=== PATIENT | female | born 1975 | race Caucasian/White ===

== ENCOUNTER 2017-02-05 18:01 | Emergency (ER) | payer MEDICAID ==
[~2017-02-05 18:01] MED LIST: BACT800T5 PO; CEPH500C3 PO; PERC5TAB12 PO
--- NOTE | 2017-02-05 18:25 | PD ---
Physical Exam Time Seen by Provider: 18:24 Narrative Cough and chest congestion x 1 week. Began having fever and chills today. 101 TMAX. Dry cough. No nausea or vomiting. No significant medical history. Data Data Last Documented VS Vital Signs Date Time Temp Pulse Resp B/P (MAP) Pulse Ox O2 Delivery O2 Flow Rate FiO2 02/05/17 19:32 02/05/17 18:28 98.0 66 16 99 Room Air [facility] Medical Record Reviewed: Yes Supervised Visit with JOHNNIE: No Scripts Benzonatate (Tessalon Perles) 100 Mg Cap 200 MG PO TID Y for COUGH, #20 CAP 0 Refills Prov: Lakhwinder Schwab MD 02/05/17 Fluticasone Nasal [place] (Flonase Nasal [place]) 50 Mcg/Act [place] 100 MCG EACH NARE BID for Allergies for 10 Days, #1 BOTTLE 0 Refills Prov: Lakhwinder Schwab MD 02/05/17 Amoxicillin-Clavulanate (Augmentin) 875-125 Mg Tab 1 TAB PO BID for Infection for 10 Days, #20 TAB 0 Refills Prov: Lakhwinder Schwab MD 02/05/17 Condition: Stable Li Billings Feb 05, 2017 18:25
[2017-02-05 18:28] VITALS: BP 120/78; PULSE 66; RESP 16; TEMP 98; O2SAT 99
[2017-02-05] MEDS ORDERED: AUGM875T3 PO (18:48)
[2017-02-05] MEDS ORDERED: BENZ100 PO (18:48)
[2017-02-05] MEDS ORDERED: FLUT1SPR5 EACH NARE (18:48)
--- NOTE | 2017-02-05 18:56 | PD ---
HPI Chief Complaint: Respiratory Symptoms Time Seen by Provider: 18:47 Travel History International Travel<30 days: No Contact w/Intl Traveler<30days: No Traveled to known affect area: No History of Present Illness HPI This is a 42-year-old female who presents for evaluation. For the past week she 's had a cough. The cough is productive with green sputum in the mornings but the rest of the day it is typically a dry cough. She endorses right ear pain for the past few days as well as low-grade fevers. The pain in the right ear is an aching pain which is constant. She denies sore throat, abdominal pain, flank pain, rash, recent travel. She reports that her roommates have had similar symptoms recently. She has no other complaints at this time. [facility] Past Medical History Anxiety: Yes Depression: Yes Diminished Hearing: No Hypertension: Yes Musculoskeletal: Yes ( LOW BACK PAIN) : 3 Para: 2 : 1 Past Surgical History Section: No Other Surgery: Yes (CLEFT PALATE) Social History Alcohol Use: Yes (VODKA) Tobacco Use: Yes (/2 PPD) Substance Use: No Allergies-Medications (Allergen,Severity, Reaction): Coded Allergies: No Known Allergies (Verified , 02/05/17) Reported Meds & Prescriptions Reported Meds & Active Scripts Active Tessalon Perles (Benzonatate) 100 Mg Cap 200 Mg PO TID PRN Flonase Nasal [place] (Fluticasone Nasal [place]) 50 Mcg/Act [place] 100 Mcg EACH NARE BID 10 Days Augmentin (Amoxicillin-Clavulanate) 875-125 Mg Tab 1 Tab PO BID 10 Days Percocet 5-325 mg (Oxycodone/Acetaminophen) Oxycodone 5/325 Acetaminophen Tab 1 Tab PO Q6H PRN Keflex (Cephalexin Monohydrate) 500 Mg Cap 500 Mg PO Q8 10 Days Bactrim DS (Sulfamethoxazole-Trimethoprim DS) 1 Tab Tab 1 Tab PO BID Review of Systems Except as stated in HPI: all other systems reviewed are Neg Physical Exam Narrative GENERAL: Well-developed well-nourished female in no acute distress SKIN: Warm and dry. HEAD: Atraumatic. Normocephalic. EYES: Pupils equal and round. No scleral icterus. No injection or drainage. ENT: No nasal bleeding or discharge. Mucous membranes pink and moist. The right tympanic membrane is bulging and erythematous. No perforation. NECK: Trachea midline. No JVD. There is no lymphadenopathy CARDIOVASCULAR: Regular rate and rhythm. No murmur appreciated. RESPIRATORY: No accessory muscle use. Clear to auscultation. Breath sounds equal bilaterally. No crackles no wheezing or rhonchi Data Data Last Documented VS Vital Signs Date Time Temp Pulse Resp B/P (MAP) Pulse Ox O2 Delivery O2 Flow Rate FiO2 02/05/17 18:28 98.0 66 16 120/78 (92) 99 Room Air [facility] Medical Decision Making Medical Screen Exam Complete: Yes Emergency Medical Condition: Yes Medical Record Reviewed: Yes Differential Diagnosis Right otitis media, sinusitis, bronchitis, pneumonia, influenza Narrative Course This is a 42-year-old female who presents with 1 week of cough, ear pain and low -grade fevers for the past few days. Examination reveals right otitis media. Her lungs sound clear. She appears to have a upper respiratory infection. At this point in time the plan would be to treat the patient with Augmentin, Flonase, Tessalon. She is stable for discharge. Diagnosis Primary Impression: Right otitis media Qualified Codes: H66.001 - Acute suppurative otitis media without spontaneous rupture of ear drum, right ear Additional Impression: Upper respiratory infection Qualified Codes: J06.9 - Acute upper respiratory infection, unspecified Additional Instructions: Medication as prescribed. Avoid tobacco products. Stay well hydrated well- nourished, get plenty of rest. Return for any emergent medical conditions. Med/Other Pt SpecificInfo: Prescription(s) given Scripts Benzonatate (Tessalon Perles) 100 Mg Cap 200 MG PO TID Y for COUGH, #20 CAP 0 Refills Prov: Lakhwinder Schwab MD 02/05/17 Fluticasone Nasal [place] (Flonase Nasal [place]) 50 Mcg/Act [place] 100 MCG EACH NARE BID for Allergies for 10 Days, #1 BOTTLE 0 Refills Prov: Lakhwinder Schwab MD 02/05/17 Amoxicillin-Clavulanate (Augmentin) 875-125 Mg Tab 1 TAB PO BID for Infection for 10 Days, #20 TAB 0 Refills Prov: Lakhwinder Schwab MD 02/05/17 Disposition: 01 DISCHARGE HOME Condition: Stable Gopi Matos Feb 05, 2017 18:56
== END 2017-02-05 19:35 | disposition home or self-care (01) ==
LOC: NEPK 18:01
DX: H66.91 Otitis media, unspecified, right ear (principal); J06.9 Acute upper respiratory infection, unspecified; F41.9 Anxiety disorder, unspecified; F32.9 Major depressive disorder, single episode, unspecified; I10 Essential (primary) hypertension; F17.200 Nicotine dependence, unspecified, uncomplicated; Z79.899 Other long term (current) drug therapy
CPT/HCPCS: 99284

== ENCOUNTER 2017-06-14 12:53 | Emergency (ER) | payer MEDICAID ==
[~2017-06-14] VITALS: Ht 172.7 cm; Wt 75.0 kg
[~2017-06-14 12:53] MED LIST changes: +AUGM875T3 PO; +BENZ100 PO; +FLUT1SPR5 EACH NARE
[2017-06-14 12:54] VITALS: BP 130/83; PULSE 77; RESP 12; TEMP 98.8; O2SAT 98
[2017-06-14 14:43] LABS: BILIRUBIN, URINE NEG (NEG); BLOOD, URINE NEG (NEG); GLUCOSE,URINE NEG (NEG); KETONE, URINE NEG (NEG); NITRITE,URINE NEG (NEG); SQUAMOUS EPITHELIAL CELL URINE 2 /hpf (0-5); URINE COLOR LIGHT-YELLOW (YELLW/STRAW); URINE LEUKOCYTE ESTERASE NEG (NEG)
--- NOTE | 2017-06-14 14:46 | PD ---
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 She denies any vomiting. She has felt a little bit feverish. She also has had some vaginal discharge. She says she has had 2 sexual partners in the past 6 months and it is possible she has an STD. She also has a history of recurrent bacterial vaginosis. PFSH Past Medical History Anxiety: Yes Depression: Yes Diminished Hearing: No Hypertension: Yes Musculoskeletal: Yes ( LOW BACK PAIN) Immunizations Current: Yes ?: Unknown : 3 Para: 2 : 1 Past Surgical History Section: No Other Surgery: Yes (CLEFT PALATE) Social History Alcohol Use: Yes (VODKA) Tobacco Use: Yes (/2 PPD) Substance Use: No Allergies-Medications (Allergen,Severity, Reaction): Coded Allergies: No Known Allergies (Verified , 02/05/17) Reported Meds & Prescriptions Reported Meds & Active Scripts Active Tessalon Perles (Benzonatate) 100 Mg Cap 200 Mg PO TID PRN Flonase Nasal [place] (Fluticasone Nasal [place]) 50 Mcg/Act [place] 100 Mcg EACH NARE BID 10 Days Augmentin (Amoxicillin-Clavulanate) 875-125 Mg Tab 1 Tab PO BID 10 Days Percocet 5-325 mg (Oxycodone/Acetaminophen) Oxycodone 5/325 Acetaminophen Tab 1 Tab PO Q6H PRN Keflex (Cephalexin Monohydrate) 500 Mg Cap 500 Mg PO Q8 10 Days Bactrim DS (Sulfamethoxazole-Trimethoprim DS) 1 Tab Tab 1 Tab PO BID Review of Systems Except as stated in HPI: all other systems reviewed are Neg Physical Exam Narrative GENERAL:Well appearing, no acute distress SKIN: Focused skin assessment warm and dry. HEAD: Atraumatic. Normocephalic. EYES: Pupils equal and round. No injection or drainage. ENT: Moist mucous membranes NECK: Trachea midline. CARDIOVASCULAR: Regular rate and rhythm. No murmur appreciated. RESPIRATORY: Clear to auscultation. Breath sounds equal bilaterally. GASTROINTESTINAL: Abdomen soft, mildly tender to palpation in the suprapubic region with no rebound/guarding. LABOR RELATIONS ANALYST: white vaginal discharge with no cervical motion tenderness or adnexal tenderness MUSCULOSKELETAL: No obvious deformities. NEUROLOGICAL: Awake and alert. No obvious cranial nerve deficits. Moving all extremities PSYCHIATRIC: Appropriate mood and affect; insight and judgment normal. Data Data Last Documented VS Vital Signs Date Time Temp Pulse Resp B/P (MAP) Pulse Ox O2 Delivery O2 Flow Rate FiO2 06/14/17 12:54 98.8 77 12 130/83 (99) 98 Orders Orders Urinalysis - C+S If Indicated (06/14/17 13:30) Ed Urine Pregnancytest Poc (06/14/17 13:30) Wet Prep Profile (06/14/17 14:55) Gc And Chlamydia Pcr (06/14/17 14:55) Labs Laboratory Tests Test 06/14/17 14:22 06/14/17 15:30 Urine Color LIGHT-YELLOW Urine Turbidity CLEAR Urine pH 7.0 Urine Specific [place] 1.006 Urine Protein NEG mg/dL Urine Glucose (UA) NEG mg/dL Urine Ketones NEG mg/dL Urine Occult Blood NEG Urine Nitrite NEG Urine Bilirubin NEG Urine Urobilinogen LESS THAN 2.0 MG/DL Urine Leukocyte Esterase NEG Urine RBC 1 /hpf Urine WBC LESS THAN 1 /hpf Urine Squamous Epithelial Cells 2 /hpf Microscopic Urinalysis Comment CULT NOT INDICATED Clue Cells (Wet Prep) PRESENT Vaginal Trichomonas (Wet Prep) NONE SEEN Vaginal Yeast (Wet Prep) NONE SEEN MDM Medical Decision Making Medical Screen Exam Complete: Yes Emergency Medical Condition: Yes Interpretation(s) Afebrile, no tachycardia, normotensive Clue cells on wet prep are present Differential Diagnosis Urinary tract infection, pyelonephritis, gonorrhea, chlamydia, bacterial vaginosis Narrative Course This is a 42-year-old female who presents to the emergency department with vaginal discharge and dysuria. Pelvic exam is consistent with bacterial vaginosis. Wet prep demonstrates clue cells. Patient will be discharged with Flagyl. She has no signs of PID on physical exam. Diagnosis Primary Impression: Bacterial vaginosis Patient Instructions: General Instructions Additional Instructions: If you develop fever, chills, severe abdominal pain, persistent vomiting or inability to eat return to the emergency department. Your pelvic exam today did not include a Pap smear. It is important to followup with a locomotive oiler on a yearly basis to be tested for cervical cancer as we do not do that from the emergency department. If there is a concern that you have sexually transmitted disease, your partner should be tested. You should followup with your locomotive oiler or with the health department to get tested for other sexually transmitted diseases like HIV and syphilis, as we do not test for these in the emergency department Med/Other Pt SpecificInfo: Prescription(s) given Scripts Metronidazole (Flagyl) 500 Mg Tab 500 MG PO BID for Infection for 7 Days, #14 TAB 0 Refills Prov: Sonia Bose MD 06/14/17 Disposition: 01 DISCHARGE HOME Condition: Stable Sonia Bose MD Jun 14, 2017 14:46
[2017-06-14] MEDS ORDERED: METR-1 PO (16:18)
== END 2017-06-14 16:40 | disposition home or self-care (01) ==
LOC: NEPD 12:53
DX: N76.0 Acute vaginitis (principal); B96.89 Other specified bacterial agents as the cause of diseases classified elsewhere; F17.200 Nicotine dependence, unspecified, uncomplicated
CPT/HCPCS: 81001; 84703; 87210; 87491; 87591; 99283

== ENCOUNTER 2017-08-02 09:12 | Emergency (ER) | payer MEDICAID ==
[~2017-08-02] VITALS: Ht 172.7 cm; Wt 78.0 kg
[~2017-08-02 09:12] MED LIST changes: +METR-1 PO
[2017-08-02 09:39] VITALS: BP 121/67; PULSE 69; RESP 17; TEMP 98.1; O2SAT 98
[2017-08-02] MEDS ORDERED: MAGICPED SWISH-SWAL (10:14)
[2017-08-02] MEDS ORDERED: AMOX500C PO (10:14)
[2017-08-02] MEDS ORDERED: MOME17I EACH NARE (10:14)
--- NOTE | 2017-08-02 10:15 | PD ---
HPI Chief Complaint: ENT Complaint Time Seen by Provider: 10:01 Travel History International Travel<30 days: No Contact w/Intl Traveler<30days: No Traveled to known affect area: No History of Present Illness HPI 42-year-old female presents to the emergency department with complaint of sore throat 1 week with onset of nasal congestion, sinus pressure, right ear pain, cough yesterday. Reports subjective fever last night. Denies lump in throat, difficulty swallowing, unusual drooling. Sore throat is mostly on the right side. Denies chest pain, shortness of breath, wheezing, abdominal pain, vomiting. Has been using sore throat lozenges and other cold medications for symptom management. Symptoms are mild in severity. Symptoms were mildly relieved with medications. Sore throat is aggravated with swallowing. Says she quit smoking 18 days ago and read that her sore throat could be related to stopping smoking. She has a primary care provider she can follow-up with. Denies significant past medical history. No known allergies. Has no other medical complaints. No other modifying factors or associated signs and symptoms. PFSH Past Medical History Anxiety: Yes Depression: Yes Diminished Hearing: No Hypertension: Yes Musculoskeletal: Yes ( LOW BACK PAIN) Immunizations Current: Yes ?: Not LMP: 07/2017 : 3 Para: 2 : 1 Past Surgical History Section: No Other Surgery: Yes (CLEFT PALATE) Social History Alcohol Use: Yes (QUIT -18 MONTHS ) Tobacco Use: Yes (1/2 PPD) Substance Use: No (HX: COCCAINE, MARIJUANA- CLEAN FOR 18 MONTHS ) Allergies-Medications (Allergen,Severity, Reaction): Coded Allergies: No Known Allergies (Verified Adverse Reaction, Unknown, 08/02/17) Reported Meds & Prescriptions Reported Meds & Active Scripts Active Magic Mouthwash Pediatric/Adult Liq (Lidocaine/Diphenhydr/Alum/Mg/Simeth) 60 Ml Susp 5 Ml SWISH-SWAL ACHS PRN Each 5mL contains: Diphenydramine 4.5mg, Viscous Lidocaine 2% 10mg, Maalox Advanced Regular Strength 2.7ml Nasonex Nasal [place] (Mometasone Furoate) 50 Mcg/Act Naspr 2 [place] EACH NARE DAILY Amoxicillin 500 Mg Cap 500 Mg PO BID 10 Days Flagyl (Metronidazole) 500 Mg Tab 500 Mg PO BID 7 Days Tessalon Perles (Benzonatate) 100 Mg Cap 200 Mg PO TID PRN Flonase Nasal [place] (Fluticasone Nasal [place]) 50 Mcg/Act [place] 100 Mcg EACH NARE BID 10 Days Augmentin (Amoxicillin-Clavulanate) 875-125 Mg Tab 1 Tab PO BID 10 Days Percocet 5-325 mg (Oxycodone/Acetaminophen) Oxycodone 5/325 Acetaminophen Tab 1 Tab PO Q6H PRN Keflex (Cephalexin Monohydrate) 500 Mg Cap 500 Mg PO Q8 10 Days Bactrim DS (Sulfamethoxazole-Trimethoprim DS) 1 Tab Tab 1 Tab PO BID Review of Systems Except as stated in HPI: all other systems reviewed are Neg Physical Exam Narrative GENERAL: Well-nourished, well-developed female patient, in no acute distress; afebrile, nontoxic-appearing SKIN: Warm and dry. No rash. HEAD: Atraumatic. Normocephalic. Frontal and maxillary sinus tenderness on palpation. EYES: Pupils equal and round at 3 mm with brisk reaction. No scleral icterus. No injection or drainage. PERRLA. ENT: Mucosa pink and moist. Oropharynx without erythema, exudates, tonsillar edema.. No uvular edema. No uvular, palatal, or tonsillar deviation. Airway patent. EARS: Bilateral pinnae and external canals appear within normal limits. Bilateral tympanic membranes without erythema, dullness or perforation. NECK: Trachea midline. No lymphadenopathy. CARDIOVASCULAR: Regular rate and rhythm. No murmur appreciated. RESPIRATORY: No accessory muscle use. Clear to auscultation. Breath sounds equal bilaterally. GASTROINTESTINAL: Flat. MUSCULOSKELETAL: No obvious deformities. No clubbing. No cyanosis. No edema. NEUROLOGICAL: Awake and alert. Oriented 3. No obvious cranial nerve deficits. Motor grossly within normal limits. Normal speech. Moves all extremities. 5/5 strength to all extremities. PSYCHIATRIC: Appropriate mood and affect; insight and judgment normal. Data Data Last Documented VS Vital Signs Date Time Temp Pulse Resp B/P (MAP) Pulse Ox O2 Delivery O2 Flow Rate FiO2 08/02/17 09:39 98.1 69 17 121/67 (85) 98 Orders Orders Ed Discharge Order (08/02/17 10:16) MDM Medical Decision Making Medical Screen Exam Complete: Yes Emergency Medical Condition: Yes Medical Record Reviewed: Yes Differential Diagnosis Upper respiratory infection, sinusitis, pharyngitis, less likely peritonsillar abscess Narrative Course 42-year-old female physical exam and HPI consistent with sinusitis. Patient is afebrile and nontoxic-appearing. She reports subjective fevers last night. Denies vomiting. Patient has been sick for 1 week. I will treat with antibiotics secondary to HPI and length of illness. Amoxicillin, Nasonex nasal spray, Magic mouthwash prescribed for home. Instructed patient to follow up with primary care provider. Patient verbalizes understanding and agreement with treatment plan. Patient is medically cleared and stable for discharge. Discussed reasons to return to the emergency department. Patient agrees with treatment plan. The patients vital signs are stable and the patient is stable for outpatient follow-up and treatment. Patient discharged home, stable and in no acute distress. Diagnosis Primary Impression: Sinusitis Qualified Codes: J32.9 - Chronic sinusitis, unspecified Referrals: Primary Care Physician Patient Instructions: General Instructions, Sinusitis (ED) Departure Forms: Tests/Procedures, Work Release Enter return to work date: Aug 04, 2017 Additional Instructions: Antibiotics as prescribed and complete full course Ibuprofen or Tylenol as instructed and as needed for fever/pain [id number] cough and cold medications as directed and as needed for symptom management Get plenty of sleep/rest Drink plenty of fluids to prevent dehydration; popsicles and Gatorade Use an air humidifier/turn off ceiling fans Follow-up with primary care provider Return immediately to the emergency department with worsening of symptoms Med/Other Pt SpecificInfo: Prescription(s) given Scripts [id number]-Ibb-Alum-Simeth Liq (Magic Mouthwash Pediatric/Adult Liq) 60 Ml Susp 5 ML SWISH-SWAL ACHS Y for SORE THROAT, #60 ML 0 Refills Each 5mL contains: Diphenydramine 4.5mg, Viscous Lidocaine 2% 10mg, Maalox Advanced Regular Strength 2.7ml Prov: Danielle Arredondo LIGHTING ADVISER 08/02/17 Mometasone Nasal [place] (Nasonex Nasal [place]) 50 Mcg/Act Naspr 2 [place] EACH NARE DAILY for Allergy Management, #1 BOTTLE 0 Refills Prov: Danielle ArredondoP 08/02/17 Amoxicillin (Amoxicillin) 500 Mg Cap 500 MG PO BID for Infection for 10 Days, #20 CAP 0 Refills Prov: Danielle Arredondo 08/02/17 Disposition: 01 DISCHARGE HOME Condition: Stable Danielle Arredondo Aug 02, 2017 10:14
== END 2017-08-02 10:33 | disposition home or self-care (01) ==
LOC: NEPK 09:12
DX: J32.9 Chronic sinusitis, unspecified (principal); F41.9 Anxiety disorder, unspecified; F32.9 Major depressive disorder, single episode, unspecified; I10 Essential (primary) hypertension; F17.200 Nicotine dependence, unspecified, uncomplicated; Z87.891 Personal history of nicotine dependence
CPT/HCPCS: 99283